=== PATIENT | male | born 1985 | race African-American/Black ===

== ENCOUNTER 2019-01-19 05:22 | Emergency (ER) | payer OTHER ==
[~2019-01-19] VITALS: Ht 172.7 cm; Wt 76.8 kg
[2019-01-19 05:23] VITALS: BP 137/78
[2019-01-19] MEDS ORDERED: NAPR-832 PO (05:34)
== END 2019-01-19 06:06 | disposition home or self-care (01) ==
LOC: M ED 05:22
DX: G47.00 Insomnia, unspecified (principal); R20.2 Paresthesia of skin

== ENCOUNTER → 2019-04-23 | Outpatient (CLI) | payer OTHER ==
[~2019-04-23] MED LIST: METHACHOLINE KIT (J7674) INH ONE; NAPR-832 PO
--- NOTE | 2019-04-23 11:28 | PFTRPT ---
Site: [facility], [address] [place], [address] ID: [id number] Name: IVELISSE DOMINIQUE Visit Date: 04/23/2019 Second ID: [id number] Referring Doctor: GIOVANNA Gomez Marcus, M Reviewing Doctor: Torsten Zacarias MD Insulator Apprentice: Danna SOLOMON, PATRICK Age: 33 : 1985 Sex: Male Race: Black Height: 68.00 Inches Weight: 158.00 Lbs BSA: 1.85 Order IDs: [id number] Requested Test(s): <RESP-PFT.METH CHAL> Diagnosis: R06.00 of albuterol for postbronchodilator. Review Status: Not Reviewed Pre-Bronch Post-Bronch Pred Actual %Pred Actual %Chng SPIROMETRY FVC (L) 4.23 4.84 114 4.79 -1 FEV1 (L) 3.54 4.26 120 4.31 1 FEV1/FVC (%) 83 88 106 90 2 FEF 25% (L/sec) 7.72 10.30 133 9.32 -9 FEF 50% (L/sec) 5.31 6.49 122 7.22 11 FEF 75% (L/sec) 1.98 2.79 140 3.18 13 FEF 25-75% (L/sec) 3.92 5.48 139 6.01 9 FEF Max (L/sec) 9.08 10.47 115 9.40 -10 FIVC (L) 4.53 3.61 -20 FIF 50% (L/sec) 5.45 3.71 68 1.96 -47 FIF Max (L/sec) 4.32 3.10 -28 Expiratory Time (sec) 6.20 6.69 7 Back Extrap Vol (L) 0.16 0.15 -2 Time To FEFmax (sec) 0.097 0.113 16
== END ==
LOC: M CARPUL 10:23
PROVIDERS: ATTEND Physician Assistant
DX: R06.00 Dyspnea, unspecified (principal)
CPT/HCPCS: 94070; J7674

== ENCOUNTER 2019-05-15 08:38 | Day surgery (SDC) | payer OTHER ==
[~2019-05-15] VITALS: Ht 172.7 cm; Wt 77.3 kg
[~2019-05-15 08:38] MED LIST changes: +ABIL1TAB11 PO; +CELE1CAP4 PO; +EFFE75CA2 PO; +FLUT22IN INH; +LIDOCAINE 2% INJ 100 MG/5 ML SDV (FOR ANES.) As Ordered ONE; +LR 1,000 ML IV ONE; -METHACHOLINE KIT (J7674) INH ONE; +MIDAZOLAM INJ 2 MG/2 ML VIAL (J2250) As Ordered ONE; +NEUR300C PO; +OLOP0.1D OP; +PRAZ2CAP PO; +PROAAER10 INH; +REFR0.1D OP; +TOPA200T7 PO; +TRAZ-257 PO; +VIAG100T PO; +VITA30004 PO; +ceFAZolin SOD 2 GM in IV 1 EA IV ONE; +fentaNYL 100 MCG/2 ML INJECTION (J3010) As Ordered ONE; +propofoL 200 MG/20 ML VIAL As Ordered ONE
[2019-05-15] MEDS ORDERED: KETOROLAC 60 MG/2 ML VIAL (J1885) As Ordered ONE (09:37)
[2019-05-15] MEDS ORDERED: ONDANSETRON 4MG/2ML VIAL (J2405) As Ordered ONE (09:37)
[2019-05-15] MEDS ORDERED: BUPIVACAINE HCL 0.5% 10 ML VIAL As Ordered ONE (09:54)
[2019-05-15] MEDS ORDERED: dexameTHASONE 4 MG/ML 1ML VIAL (J1100) As Ordered ONE (09:54)
[2019-05-15] MEDS ORDERED: LIDOCAINE 1% MDV 20ML VIAL As Ordered ONE (09:54)
[2019-05-15] MEDS ORDERED: KETAMINE HCL 200 MG/20 ML VIAL As Ordered ONE (10:45)
[2019-05-15] MEDS ORDERED: HYDR-3713 PO (11:46)
[2019-05-15 13:20] VITALS: BP 136/74
--- NOTE | 2019-05-16 09:17 | RO ---
DATE OF PROCEDURE: 05/15/2019 PREPROCEDURE DIAGNOSIS: Right foot bunion. POSTPROCEDURE DIAGNOSIS: Right foot bunion. PROCEDURE: Right foot bunionectomy 1st metatarsal osteotomy. SURGEON: Dr. Tate Henderson STRAINER MILL OPERATOR: None. ANESTHESIA: Monitored anesthesia care. Preoperative injection of 15 mL of 1:1 mixture of 1% lidocaine plain, 0.5% Marcaine plain. ESTIMATED BLOOD LOSS: Minimal. MATERIALS: Arthrex 3.5 headless compression screw, #3-0 and #4-0 Vicryl, #4-0 nylon. INJECTABLES: 1 mL Decadron 4 mg/mL. COMPLICATIONS: None. CONDITION: Stable. Susie Webb is a 33-year-old male who presents to the [facility] with painful right bunion who presents today for surgical correction. The patient's side and site were identified and marked in the preoperative holding area. Consent was reviewed and obtained. All risks, complications, and alternatives to the procedure were explained to the patient in detail. All questions were answered. DESCRIPTION OF PROCEDURE: The patient was brought to the operating room and placed on the operating room table in supine position. Monitored anesthesia care was delivered by the anesthesia team. A preoperative injection of 15 mL of 1:1 mixture of 1% lidocaine plain and 0.5% Marcaine plain were injected to the right foot. The right foot was prepped and draped in the normal sterile fashion. A tourniquet was applied to the right ankle and inflated at 215 mmHg. A dorsomedial incision was drawn and carried through with a #15 blade. Dissection was carried down to the 1st metatarsophalangeal joint, and capsule was identified. A T capsulotomy was performed, exposing the metatarsal head. Following this, a lateral release was performed, releasing the lateral capsule, adductor tendon, and sesamoidal ligaments. McGlamry elevator was used to release the plantar structures. Following this, a sagittal saw was used to resect the medial eminence of the metatarsal head. An osteotomy was performed at the metatarsal head, transposing it laterally. This was fixated with an Arthrex 3.5 headless compression screw. The remaining bone ledge was removed with sagittal saw and smoothed with a rasp. The site was irrigated with normal saline. A wedge of capsule was removed from the medial capsule, and the capsular repair was then performed with #3-0 Vicryl, subcutaneous closure with #4-0 Vicryl, and skin closure with #4-0 nylon. 1 mL Decadron was injected. Sterile dressings were applied. Tourniquet was deflated. The patient was brought to postanesthesia care unit (PACU) with vital signs stable and neurovascular status intact. She will be partial weightbearing with the foot. She will followup in office in 2 days.
== END 2019-05-15 13:44 | disposition home or self-care (01) ==
LOC: M SDC 08:38
PROVIDERS: ATTEND Podiatrist Foot & Ankle Surgery
DX: M20.11 Hallux valgus (acquired), right foot (principal); M54.9 Dorsalgia, unspecified; J45.909 Unspecified asthma, uncomplicated; F41.9 Anxiety disorder, unspecified; F32.9 Major depressive disorder, single episode, unspecified; Z79.899 Other long term (current) drug therapy
CPT/HCPCS: 28296; 88300; 97116; C1713; J0690; J1100; J1885; J2250; J2405; J3010

== ENCOUNTER → 2020-07-01 | Outpatient (CLI) | payer OTHER ==
[~2020-07-01] MED LIST changes: +HYDR-3713 PO; -LIDOCAINE 2% INJ 100 MG/5 ML SDV (FOR ANES.) As Ordered ONE; -LR 1,000 ML IV ONE; -MIDAZOLAM INJ 2 MG/2 ML VIAL (J2250) As Ordered ONE; -ceFAZolin SOD 2 GM in IV 1 EA IV ONE; -fentaNYL 100 MCG/2 ML INJECTION (J3010) As Ordered ONE; -propofoL 200 MG/20 ML VIAL As Ordered ONE
--- NOTE | 2020-07-01 12:39 | REP ---
INDICATION: LIZETH KNEE PAIN. COMPARISON: None. TECHNIQUE: Multiple sequences obtained in the axial, coronal and sagittal planes. FINDINGS: Menisci: Intact, no tear. Cruciate ligaments: Intact. Collateral ligaments: Intact. Extensor mechanism/patellar retinacula: Intact. Cartilage: Smooth, no osteochondral defect. There is mild global chondromalacia. Bone marrow: Normal signal, no edema or occult fracture. There is a bone island in the medial femoral condyle. Joint fluid: There is a very small joint effusion. Popliteal region: There is a tiny amount of fluid in the medial popliteal fossa. IMPRESSION: No evidence of internal derangement. Mild global chondromalacia. Very small joint effusion. <Electronically signed by Marino Portillo > 07/01/20 [id number]
--- NOTE | 2020-07-01 13:39 | REP ---
INDICATION: LIZETH KNEE PAIN. COMPARISON: None. TECHNIQUE: Multiple sequences obtained in the axial, coronal and sagittal planes. FINDINGS: Menisci: Intact, no tear. Cruciate ligaments: Intact. Collateral ligaments: Intact. Extensor mechanism/patellar retinacula: Intact. Cartilage: Smooth, no osteochondral defect. There is mild global chondromalacia. Bone marrow: Normal signal, no edema or occult fracture. Joint fluid: No effusion. Popliteal region: A Davidson's cyst is present, extending for a craniocaudal length of approximately 4 cm, but with a thickness of only 5 mm maximally. IMPRESSION: No evidence of internal derangement. Mild global chondromalacia. Thin Davidson's cyst. <Electronically signed by Marino Portillo > 07/01/20 [id number]
== END ==
LOC: M RAD 10:53
PROVIDERS: ATTEND Physician Assistant Medical
DX: M25.461 Effusion, right knee (principal); M71.22 Synovial cyst of popliteal space [Baker], left knee; M94.261 Chondromalacia, right knee; M94.262 Chondromalacia, left knee

== ENCOUNTER → 2020-10-15 | Outpatient (CLI) | payer OTHER ==
--- NOTE | 2020-10-15 09:36 | REP ---
INDICATION: PAIN BILATERAL KNEE. COMPARISON: None. TECHNIQUE: Bilateral knee series including sunrise, standing AP, and lateral projections. FINDINGS: Upright AP lateral and nonweightbearing sunrise views demonstrate normal bones, joints, and soft tissues. A normal fabella is present bilaterally. There is a bone island in the distal femur on the right. IMPRESSION: Negative knee radiographs. <Electronically signed by Jacky Basilio > 10/15/20 [id number]
== END ==
LOC: M SOG 09:03
PROVIDERS: ATTEND Orthopaedic Surgery Adult Reconstructive Orthopaedic Surgery
DX: M25.562 Pain in left knee (principal); M25.561 Pain in right knee

== ENCOUNTER → 2023-01-11 | Outpatient (CLI) | payer OTHER ==
[~2023-01-11] MED LIST changes: +GASTROGRAFIN SOLUTION 30ML ONE; +ISOVUE-370 76% 100ML VIAL ONE; -OLOP0.1D OP; +OLOP5DRO17 OP
== END ==
LOC: M PLAIMG 10:53
PROVIDERS: ATTEND Nurse Practitioner Family
DX: R10.9 Unspecified abdominal pain (principal)
CPT/HCPCS: 74177; Q9963; Q9967

== ENCOUNTER 2024-05-13 20:47 | Emergency (ER) | payer OTHER ==
[~2024-05-13] VITALS: Ht 172.7 cm; Wt 77.6 kg
[~2024-05-13 20:47] MED LIST changes: -GASTROGRAFIN SOLUTION 30ML ONE; -ISOVUE-370 76% 100ML VIAL ONE
[2024-05-14 00:52] LABS: KETONE, URINE AUTO RFX NEGATIVE (NEGATIVE); LEUKOCYTE ESTERASE UR AUTO RFX NEGATIVE (NEGATIVE); MUCUS, URINE RFX SMALL (NEGATIVE); NITRITE, URINE AUTO RFX NEGATIVE (NEGATIVE); RBC, URINE AUTO RFX 0 /HPF (0-3); SQUAM EPITHELIAL CELL UR AURFX 0 /HPF (0-6); WBC, URINE AUTO RFX 0 /HPF (0-3)
[2024-05-14] MEDS ORDERED: ISOVUE-370 76% 100ML VIAL As Ordered ONE (00:52)
[2024-05-14 01:07] LABS: BASO % 0.5 % (0.0-1.0); EOS # 0.1 10^3/uL (0.0-0.5); EOS % 2.3 % (0.0-3.0); HEMATOCRIT 45.7 % (42.0-52.0); LYMPH # 2.4 10^3/uL (1.5-5.0); LYMPH % 40.8 % (24.0-44.0); MEAN CORPUSCULAR HEMOGLOBIN 30.3 pg (27.0-33.0); MEAN CORPUSCULAR HGB CONC 32.8 g/dl (32.0-36.5); MEAN CORPUSCULAR VOLUME 92.3 fl (80.0-96.0); MONO # 0.5 10^3/uL (0.0-0.8); MONO % 7.7 % (2.0-8.0); NEUTROPHILS # 2.9 10^3/uL (1.5-8.5); NEUTROPHILS % 48.5 % (36.0-66.0); PLATELET COUNT, AUTOMATED 216 10^3/uL (150-450); RED BLOOD COUNT 4.95 10^6/uL (4.30-6.10)
[2024-05-14 03:04] LABS: GC DNA AMPLIFICATION NEGATIVE (NEGATIVE)
[2024-05-14 03:46] LABS: Trichomonas vaginalis (AMP) NOT DETECTED (NEGATIVE)
[2024-05-14] MEDS: MAGNESIUM CITRATE 300ML BTL PO ONE (04:34)
[2024-05-14] MEDS: FLEET ENEMA PR ONE (04:35)
[2024-05-14 04:41] VITALS: BP 138/57; TEMP 97.3; O2SAT 100
== END 2024-05-14 04:43 | disposition home or self-care (01) ==
LOC: M ED 20:47
DX: N50.811 Right testicular pain (principal); N50.812 Left testicular pain; K59.00 Constipation, unspecified; Z11.3 Encounter for screening for infections with a predominantly sexual mode of transmission
CPT/HCPCS: 36415; 74177; 76870; 80047; 81001; 85025; 87661; 87810; 87850; 93976; 99284; Q9967